=== PATIENT | male | born 1980 | race Caucasian/White ===

== ENCOUNTER → 2021-04-28 | Outpatient (REF) ==
[~2021-04-28] MED LIST: GLUCOPHAGE500 MG/TAB PO; IBU600 MG PO; NORCO 325 MG-51 TAB PO; PERCOCET 325 MG1 TA2 PO; PRINIVIL10 MG PO; ZOFRAN ODT4 MG PO
== END ==
LOC: COL.LAB 08:14
DX: Z20.822 Contact with and (suspected) exposure to COVID-19 (principal)

== ENCOUNTER 2021-07-08 06:10 | Emergency (ER) | payer OTHER ==
[~2021-07-08] VITALS: Ht 167.6 cm; Wt 145.5 kg
[2021-07-08 06:19] VITALS: TEMP 97.9
[2021-07-08 06:29] LABS: COLLECTION METHOD CLEAN CATCH
[2021-07-08 06:33] LABS: BASO % 0.3 % (0.0-2.0); EOS # 0.1 (0.0-0.7); EOS % 1.3 % (0-4.0); HEMATOCRIT 44.5 % (42.0-52.0); HEMOGLOBIN 15.3 g/dl (13.5-18.0); LYMPH # 1.6 (1.2-3.4); MEAN CELL VOLUME 95 fl (80.0-100.0); MEAN CORPUSCULAR HEMOGLOBIN 33 pg (27.0-31.0); MEAN CORPUSCULAR HGB CONC 34 g/dl (33.0-37.0); MEAN PLATELET VOLUME 9.4 fl (7.4-10.4); MONO # 0.8 (0.1-0.6); PLATELET COUNT 288 K/mm3 (130-400); RED BLOOD COUNT 4.71 M/mm3 (4.20-5.60)
[2021-07-08 06:35] LABS: MUCOUS Present /lpf; PH 6 (5-8); SQUAMOUS EPITHELIAL 0-2 /hpf; URINE APPEARANCE Clear; URINE BACTERIA None Seen /hpf; URINE BILIRUBIN Negative (NEGATIVE); URINE BLOOD Negative (NEGATIVE); URINE COLOR Yellow; URINE GLUCOSE Negative (NEGATIVE); URINE KETONE Negative (NEGATIVE); URINE LEUKOCYTE ESTERASE Negative (NEGATIVE); URINE NITRATE Negative (NEGATIVE); URINE PROTEIN(semi-quant) 2+ (NEGATIVE); URINE RBC 0-2 /hpf
[2021-07-08 06:43] LABS: ALBUMIN 4.6 gm/dL (3.5-5.0); BILIRUBIN,TOTAL 0.4 mg/dL (0.0-1.0); CALCIUM 9.3 mg/dL (8.4-10.2); CREATININE, serum 0.8 (0.66-1.25); POTASSIUM 4.1 mmol/L (3.4-5.0); TOTAL PROTEIN 7.8 gm/dL (6.4-8.2)
[2021-07-08] MEDS ORDERED: PERCOCET 325 MG1 TA2 PO (09:43)
[2021-07-08] MEDS ORDERED: ZOFRAN ODT4 MG PO (09:43)
[2021-07-08 09:58] VITALS: BP 127/82; PULSE 72
== END 2021-07-08 09:59 | disposition home or self-care (01) ==
LOC: COL.ER 06:10
PROVIDERS: Emergency Medicine
DX: K80.50 Calculus of bile duct without cholangitis or cholecystitis without obstruction (principal); I10 Essential (primary) hypertension
CPT/HCPCS: J1170; J2405; J3010; J7030; Q9967

== ENCOUNTER 2021-07-29 06:33 | Day surgery (SDC) | payer OTHER ==
[2021-07-29] VITALS (7 sets, daily range): BP systolic 117–139; BP diastolic 40–69; PULSE 67–75; TEMP 97.6–98.2
[~2021-07-29] VITALS: Ht 165.1 cm; Wt 149.5 kg
[~2021-07-29 06:33] MED LIST changes: -GLUCOPHAGE500 MG/TAB PO; -IBU600 MG PO; -NORCO 325 MG-51 TAB PO; -PRINIVIL10 MG PO
[2021-07-29] MEDS ORDERED: PRINIVIL10 MG PO (07:17)
[2021-07-29] MEDS ORDERED: GLUCOPHAGE500 MG/TAB PO (07:18)
[2021-07-29] MEDS ORDERED: IBU600 MG PO (10:50)
[2021-07-29] MEDS ORDERED: NORCO 325 MG-51 TAB PO (10:50)
--- NOTE | 2021-07-29 11:00 | NUR ---
Patient returns to room 6 per cart from PACU accompanied by Jodie JUNIOR and is awake and alert. Temp 97.4 and room air sats 98%. Incisions x5 on abdomen clean and dry. IV fluids infusing. Taking ice chips. Allowed to rest. Spouse in room. Siderails up x2 and call light in reach.
--- NOTE | 2021-07-29 11:15 | NUR ---
Resting with eyes closed and offers no complaints.
--- NOTE | 2021-07-29 11:30 | NUR ---
Drinking water and denies pain.
--- NOTE | 2021-07-29 11:45 | NUR ---
Eating crackers and peanut butter. Denies nausea. States that he is feeling more sore.
--- NOTE | 2021-07-29 12:00 | NUR ---
Medicated with [place] 5mg tab for incisional soreness.
--- NOTE | 2021-07-29 12:17 | NUR ---
IV to INT and assisted up to the bathroom. Voids and returns to room. Tolerated activity well.
--- NOTE | 2021-07-29 12:19 | NUR ---
INT needle discontinued and site is free of redness. Patient is dressing self and call for ride home.
--- NOTE | 2021-07-29 12:43 | NUR ---
Dismissal instructions were given and patient verbalizes understanding of these and follow up appointment as scheduled. Provided office number for questions and concerns. Patient taken per wheelchair to the front entrance and assisted into vehicle with instructions in hand.
== END 2021-07-29 12:43 | disposition home or self-care (01) ==
LOC: SDCO 06:33
DX: K80.10 Calculus of gallbladder with chronic cholecystitis without obstruction (principal); I10 Essential (primary) hypertension; E11.9 Type 2 diabetes mellitus without complications; G47.33 Obstructive sleep apnea (adult) (pediatric); E66.01 Morbid (severe) obesity due to excess calories; M06.9 Rheumatoid arthritis, unspecified; Z68.43 Body mass index [BMI] 50.0-59.9, adult; Z20.822 Contact with and (suspected) exposure to COVID-19; Z79.84 Long term (current) use of oral hypoglycemic drugs; Z79.899 Other long term (current) drug therapy; Z79.1 Long term (current) use of non-steroidal anti-inflammatories (NSAID)
CPT/HCPCS: J0330; J0690; J1885; J2370; J2405; J3010; J7030; J7050